=== PATIENT | male | born 1955 | race Caucasian/White ===

== ENCOUNTER 2017-03-21 19:13 | Emergency (ER) | payer OTHER, BC ==
[~2017-03-21] VITALS: Ht 180.3 cm; Wt 97.5 kg
[~2017-03-21 19:13] MED LIST: CENTRUM SILVER1 EAC2 PO; LOSARTAN-HCTZ1 EACH PO; NORVASC5 MG PO; PRILOSEC 20 MG20 MG PO
[2017-03-21] MEDS ORDERED: NEXIUM40 MG PO (19:24)
[2017-03-21] MEDS ORDERED: INDOMETHACIN 5050 MG PO (20:26)
[2017-03-21 20:35] VITALS: BP 130/78
== END 2017-03-21 20:35 | disposition home or self-care (01) ==
LOC: M.ERS 19:13
DX: M79.674 Pain in right toe(s) (principal); I10 Essential (primary) hypertension; F17.210 Nicotine dependence, cigarettes, uncomplicated